=== PATIENT | female | born 1950 | race Caucasian/White ===

== ENCOUNTER → 2019-12-03 16:40 | Outpatient (CLI) | payer MEDICARE, SELFPAY ==
--- NOTE | ~2019-12-03 | XR_ITS ---
EXAMINATION: XR thoracic spine 3V EXAM DATE: 12/03/2019 16:59 INDICATION: Back pain. TECHNIQUE: Frontal and lateral projections of the thoracic spine as well as lateral swimmers projecti on of the upper thoracic spine for interpretation. There is no prior study for comparison. FINDINGS: There is mild mid thoracic disc disease, minimal anterior wedging of 3 consecutive mid tho racic levels, contributing to mild thoracic kyphosis. Only small endplate osteophytes. The vertebral bodies are aligned in the AP dimension. Paraspinal soft tissue is unremarkable. IMPRESSION: Mild mid thoracic disc disease and kyphosis. Reviewed, dictated and finalized at location A. ING AND VENTILATION ENGINEER
== END ==
PROVIDERS: PCP Family Medicine; Visit Provider Family Medicine
DX: M51.24 Other intervertebral disc displacement, thoracic region (principal)
CPT/HCPCS: 72072

== ENCOUNTER 2020-01-03 14:52 | Outpatient (CLI) | payer MEDICARE, SELFPAY ==
--- NOTE | ~2020-01-03 | US_ITS ---
US soft tissue head and neck 01/03/2020 15:36 Indication: Palpable right neck and supraclavicular masses Procedure: High-resolution ultrasound of the right neck and supraclavicular region Comparison: No prior studies for comparison. Findings: In the right supraclavicular location there is a complex hypoechoic mass measuring 1.4 x 1. 1 x 1 cm, consistent with a lymph node. Inferior to the thyroid gland at the sternal notch there is a n oval hypoechoic mass measuring 10 x 8 x 4 mm without internal vascularity or posterior features. Th is likely represents a lymph node with effacement of the fatty hilum. Lateral to the thyroid gland an d the right neck there is a complex hypoechoic mass with internal vascularity measuring 1.8 x 1.6 x 0 .8 cm. Impression: 1: Multiple neck masses involving the right neck lateral to the thyroid gland, right supraclavicular region and the sternal notch, likely pathologic lymph nodes. Consider metastatic disease. Correlate f or history of malignancy. Recommend correlation with percutaneous biopsy. Reviewed, dictated and finalized at location A. PROCESS MILLER HEAD Impression: 1: Multiple neck masses involving the right neck lateral to the thyroid gland, right supraclavicular region and the sternal notch, likely pathologic lymph nod es. Consider metastatic disease. Correlate for history of malignancy. Recommend correlation with percutaneous biopsy.
== END 2020-01-03 14:53 | disposition home or self-care (01) ==
LOC: ANHIMG 15:01
PROVIDERS: PCP Family Medicine; Visit Provider Obstetrics & Gynecology Gynecology
DX: R22.1 Localized swelling, mass and lump, neck (principal)
CPT/HCPCS: 76536

== ENCOUNTER 2020-01-11 15:25 | Outpatient (CLI) | payer MEDICARE, SELFPAY ==
--- NOTE | 2020-01-11 15:31 | ECG_ITS ---
Measurements Intervals [place] Rate: 99 P: 56 [place]: 157 QRS: 32 QRSD: 94 T: 34 QT: 344 QTc: 442 Interpretive Statements SINUS RHYTHM NORMAL ECG Electronically Signed On 01-11-2020 15:57:16 SEWING MACHINE MECHANIC by Darron Hernandez D.O.
== END 2020-01-11 15:26 | disposition home or self-care (01) ==
LOC: ANHSURGERY 15:31
PROVIDERS: PCP Family Medicine; Visit Provider Surgery
DX: I10 Essential (primary) hypertension (principal)
CPT/HCPCS: 93005

== ENCOUNTER 2020-01-17 00:39 | Day surgery (SDC) | payer MEDICARE, SELFPAY ==
[2020-01-11 15:11] VITALS: BMI 24.2
--- NOTE | 2020-01-16 13:55 | WPDANESEPPF ---
Anes - Initial Pre Proc Eval Procedure: Operation Date: 01/17/20 07:30 Proposed Procedures p Excisional Biopsy Right Supraclavicular Lymph Node - Everton Chanel DO Date/Time: 01/16/20 13:55 Surgeon: Everton Chanel DO Pre Op Diagnosis: supraclavicular lymphadenopathy Patient Data Age: 69 Gender: F Height: 1.57 m Weight: 60 kg Allergies Allergy/AdvReac Type Severity Reaction Status Date / Time erythromycin base Allergy Mild Rash Verified 01/17/20 06:41 Sulfa (Sulfonamide Allergy Mild Rash Verified 01/17/20 06:41 Antibiotics) azithromycin Allergy Unknown Rash Verified 01/17/20 06:41 Home Medications Medication Instructions Recorded Confirmed Type cyanocobalamin (vitamin B-12) 1,000 mcg PO DAILY 10/01/19 01/11/20 History 1,000 mcg tablet losartan 50 mg tablet 25 mg PO DAILY tablet 10/01/19 01/11/20 History atorvastatin 10 mg tablet 10 mg PO DAILY #90 tablet 01/09/20 01/11/20 Rx omeprazole 20 mg PO PRN PRN 01/11/20 01/11/20 History Patient hx anesthesia problems: none Family hx anesthesia problems: none PMFSH Social History Social History Smoking status: Never smoker Second hand tobacco smoke exposure: No Alcohol intake: current Substance use: never Gender identity (if verbalized by the patient): Female Anes - Eval Final PreProcedure Day of Procedure 01/16/20 13:55 Patient weight: overweight Heart: regular rate and rhythm Lungs: clear to auscultation and normal air movement Airway: Mallampati scale class II Neurological: alert and oriented Last oral intake: >/= 8 hours ASA classification: II Emergent: no Anesthetic plan: proceed Anesthesia type and monitoring: general GIVS and LMA Informed Consent: The patient's anesthetic plan and its attendant risks and benefits were discussed with the patient/family/POA. Questions were solicited and answers provided to the satisfaction of the patient/family/POA.
[2020-01-17] MEDS: LACTATED RINGERS 1,000 ML 30 ML IV CONT (06:50)
[2020-01-17 06:58] VITALS: BP 147/91; PULSE 99; RESP 18; TEMP 37.1; O2SAT 96
--- NOTE | 2020-01-17 07:02 | WPDHPUPDATE1 ---
History and Physical Update Update Date/Time: 01/17/20 07:02 History and Physical has been reviewed, including an updated exam of the patient. There are NO changes in the patient's condition. Risks, benefits, and alternatives have been discussed and questions answered. Patient agrees to proceed with procedure.
[2020-01-17] MEDS: ceFAZolin 2 GM/D5W 50 ML 2 GM/50 ML BAG IVPB (07:21)
[2020-01-17] MEDS: LIDO 1%/EPINEPHRINE 1:100,000 20 ML VIAL INFILTRATE (07:59)
--- NOTE | 2020-01-17 08:02 | P.OP_ITS ---
Procedure Note - Detailed Date of procedure: 01/17/20 Pre-op diagnosis: supraclavicular lymphadenopathy Post-op diagnosis: same Procedure performed: Excisional biopsy of right supraclavicular lymph node Description of procedure: * Procedure as well as risks, benefits, and alternatives were discussed with the patient. Written consent was obtained and placed in chart prior to procedure. Patient was brought back to surgical suite. She was placed supine on operating table. Time-out was done to confirm patient and procedure. IV sedation was then administered by the Anesthesia Department. Her right neck and upper chest area was prepped and draped in sterile fashion using chlorhexidine prep. 1% lidocaine with epinephrine was infiltrated directly over the palpable enlarged right supraclavicular lymph node. A 2 cm incision was made using a 15 blade scalpel directly over this lymph node. Electrocautery was used for hemostasis and for careful dissection through the subcutaneous tissue and platysma. The lymph node was identified and was carefully isolated from the surrounding attachments using electrocautery. The lymphatic channel and blood supply was ligated using electrocautery. The mass was carefully freed up and removed completely and sent to the lab for pathology. The wound bed was then inspected. Hemostasis appeared adequate. No other abnormalities were noted. The deep tissue was then reapproximated using 3 0 Vicryl simple interrupted sutures, and the skin was approximated using 4 0 Monocryl running subcuticular suture. Exofin glue was applied on top. Patient was awakened from anesthesia, and transferred to recovery. Anesthesia: MAC and local (1% lidocaine with epinephrine) Surgeon: Everton Chanel DO Estimated blood loss (mL): 5 Pathology: yes Complications: No immediate complications Condition: stable Disposition: same day Findings: This is a 69 y/o female who presented with a neck mass that has persisted over the past several weeks. U/S was done at on 01/03/20 which showed multiple neck masses involving the right neck lateral to the thyroid gland, right supraclavicular region and the sternal notch, likely pathologic lymph nodes. She denies intentional weight loss, recent scratch, and night sweats. She denies overlying skin changes. She has a firm, easily palpable, enlarged lymph node in the right supraclavicular region. Discussions were made with the patient about treatment options, and decision was made to proceed with excisional biopsy of right supraclavicular lymph node. Right supraclavicular lymph node excision was performed. The patient had a lymph node that was identified that appeared somewhat enlarged and was firm and slightly rubbery in texture. The lymph node was carefully freed up from the surrounding supraclavicular region, and removed completely. This was sent to the lab for pathology. There did appear to be other slightly enlarged lymph nodes deeper within the supraclavicular region, but no attempt was made to remove any of these.
[2020-01-17 08:13] VITALS: BP 97/64; PULSE 80; RESP 12; O2SAT 96
[2020-01-17 08:40] VITALS: BP 137/86; PULSE 80; RESP 16; O2SAT 97
== END 2020-01-17 08:56 | disposition home or self-care (01) ==
PROVIDERS: PCP Family Medicine; Visit Provider Surgery
PROC: (CPT 38500; principal; 2020-01-17 07:30)
DX: C77.0 Secondary and unspecified malignant neoplasm of lymph nodes of head, face and neck (principal); I10 Essential (primary) hypertension; E78.2 Mixed hyperlipidemia; M85.80 Other specified disorders of bone density and structure, unspecified site; K21.9 Gastro-esophageal reflux disease without esophagitis; E55.9 Vitamin D deficiency, unspecified; D51.3 Other dietary vitamin B12 deficiency anemia
CPT/HCPCS: 38500; 88108; 88184; 88185; 88305; 88333; 88342; J0690; J2250; J2370; J2704; J3010; J7120

== ENCOUNTER → 2020-01-28 12:18 | Outpatient (CLI) | payer MEDICARE, SELFPAY ==
--- NOTE | ~2020-01-28 | CT_ITS ---
EXAMINATION: CT chest w con DATE: 01/28/2020 12:54 INDICATION: Secondary an unspecified malignant neoplasm of lymph nodes TECHNIQUE: Transaxial computed tomographic images of the chest were obtained after the administration of 75 cc of Omnipaque 350 intravenous contrast. The dose-length product (DLP) was 166.24 mGy-cm. Ite rative reconstruction was used. COMPARISON: None FINDINGS: There are multiple pathologically enlarged thoracic lymph nodes. Left axillary/subpectoral lymph nodes measure up to 1.3 cm in short axis. Right axillary/subpectoral lymph nodes measure up to 2.4 cm in short axis. There are pathologically enlarged prevascular, paratracheal, right hilar, and s ubcarinal lymph nodes. There is a 4.3 x 3.3 cm right supraclavicular fluid collection containing gas. Gastrohepatic ligament lymphadenopathy measures up to 1.2 cm in short axis. There is elevation of th e left hemidiaphragm. There is no pleural effusion or pneumothorax. The heart size is normal. The meaghan gs are free of focal airspace opacities. There is moderate thoracic spondylosis. IMPRESSION: 1. Thoracic and upper abdominal lymphadenopathy as detailed above. Findings could reflect lymphoma ve rsus metastatic disease. Biopsy is recommended if not previously performed. 2. Right supraclavicular gas containing fluid collection. Findings could reflect postbiopsy seroma in the correct clinical setting. Abscess is a consideration however there is not significant associated edematous stranding of the adjacent fat. Recommend clinical correlation. Reviewed, dictated and finalized at location A. IMPRESSION: 1. Thoracic and upper abdominal lymphadenopathy as detailed above. Findings cou ld reflect lymphoma versus metastatic disease. Biopsy is recommended if not pre viously performed. 2. Right supraclavicular gas containing fluid collection. Findings could reflec t postbiopsy seroma in the correct clinical setting. Abscess is a consideration however there is not significant associated edematous stranding of the adjacen t fat. Recommend clinical correlation.
[2020-01-28 12:41] LABS: Estimated Glomerular Filt Rate > 60
== END ==
PROVIDERS: PCP Family Medicine; Visit Provider Surgery
DX: C77.9 Secondary and unspecified malignant neoplasm of lymph node, unspecified (principal); C80.1 Malignant (primary) neoplasm, unspecified; R59.0 Localized enlarged lymph nodes
CPT/HCPCS: 36415; 71260; Q9967

== ENCOUNTER 2020-10-20 07:35 | Outpatient (CLI) | payer MEDICARE, SELFPAY ==
--- NOTE | 2020-10-20 | ECG_ITS ---
Measurements Intervals [place] Rate: 97 P: 53 [place]: 178 QRS: 35 QRSD: 93 T: 54 QT: 340 QTc: 432 Interpretive Statements SINUS RHYTHM NORMAL ECG Electronically Signed On 10-20-2020 9:02:21 WOMENS HEALTH NURSE PRACTITIONER by Darron Hernandez D.O.
[2020-10-20 08:24] LABS: Basophils Absolute Auto 0.1 K/mm3 (0.0-0.1); Basophils Percent Auto 0.6 % (0.2-1.2); Eosinophils Absolute Auto 0.1 K/mm3 (0-0.3); Eosinophils Percent Auto 0.6 % (0-4.4); Hematocrit 43.6 % (37.0-47.0); Hemoglobin 13.7 g/dL (12.0-15.0); Immature Granulocyte Absolute 0.02 K/mm3 (0.00-0.031); Immature Granulocyte Percent A 0.2 % (0-0.5); Lymphocytes Absolute Auto 1.62 K/mm3 (0.9-3.2); Lymphocytes Percent Auto 18.8 % (18.3-44.2); Mean Corpuscular HGB Conc 31.4 g/dl (32-36); Mean Corpuscular Hemoglobin 30.9 pg (26-34); Mean Corpuscular Volume 98.2 fl (80-100); Mean Platelet Volume 11.1 fl (7.4-10.4); Monocytes Absolute Auto 0.6 K/mm3 (0.1-0.6); Neutrophils Absolute Auto 6.3 K/mm3 (1.3-6.7); Neutrophils Percent Auto 72.8 % (45.5-73.1); Platelet Count Result 203 k/mm3 (150-375); Red Blood Count 4.44 M/mm3 (4.2-5.4); White Blood Count 8.6 K/mm3 (4.5-10.0)
[2020-10-20 08:38] LABS: Alanine Aminotransferase 23 U/L (4-35); Albumin Level 4.4 g/dL (3.5-5.1); Alkaline Phosphatase 73 U/L (38-126); Anion Gap 7 mmol/L (8-16); Aspartate Amino Transferase 24 U/L (14-36); Bilirubin,Total 0.8 mg/dL (0.2-1.3); Blood Urea Nitrogen 10 mg/dL (7-17); Calcium 9.9 mg/dL (8.4-10.2); Carbon Dioxide 30 mmol/L (22-30); Chloride 101 mmol/L (98-107); Estimated Glomerular Filt Rate > 60; Glucose 143 mg/dL (65-105); Magnesium 2.2 mg/dL (1.6-2.3); Phosphorus 3.2 mg/dL (2.5-4.5); Sodium 138 mmol/L (137-145)
[2020-10-20 08:41] LABS: INR 0.9; Prothrombin Time 12.8 Seconds (11.1-14.7)
[2020-10-20 08:42] LABS: Partial Thromboplastin Time 33.1 SECONDS (22.3-36.8)
[2020-10-20 08:47] LABS: Fibrinogen 354 mg/dl (215-510)
[2020-10-20 09:08] LABS: Thyroid Stimulating Hormone 0.969 uIU/mL (0.465-4.680)
[2020-10-20 09:19] LABS: Free T4 Free Thyroxine 1.33 ng/mL (0.78-2.19)
[2020-10-20 15:39] LABS: Creatine Kinase 60 U/L (30-135)
[2020-10-20 16:12] LABS: Potassium Urine Random 36.8 meq/L; Sodium Urine Random 90 meq/L
[2020-10-20 16:15] LABS: Add Urine Microscopic? YES; Appearance Urine Clear (Clear); Bilirubin Urine Negative (Negative); Blood Urine Negative (Negative); Color Urine Yellow (Yellow); Glucose Urine UA Negative (Negative); Ketones Urine Negative (Negative); Leukocyte Esterase Ur Trace LEU/UL (NEGATIVE); Mucus Urine Rare /lpf; Nitrate Urine Negative (Negative); Protein Urine Negative (Negative); RBC Urine 0-2 /hpf (0-2); Specific Grav Ur 1.013 (1.001-1.035); Squamous Epithelial Cell Urine Few /hpf (Few); Urobilinogen Urine Negative mg/dL (<2.0)
[2020-10-23 14:33] LABS: Triiodothyronine T3 Free 2.6 pg/mL (2.3-4.2)
== END 2020-10-20 07:36 | disposition home or self-care (01) ==
PROVIDERS: PCP Family Medicine
DX: C34.81 Malignant neoplasm of overlapping sites of right bronchus and lung (principal)
CPT/HCPCS: 36415; 80053; 81001; 82550; 83735; 84100; 84133; 84300; 84439; 84443; 84481; 85025; 85380; 85384; 85610; 85730; 93005

== ENCOUNTER 2021-01-12 07:41 | Outpatient (CLI) | payer MEDICARE, SELFPAY ==
--- NOTE | 2021-01-12 | ECG_ITS ---
Measurements Intervals [place] Rate: 84 P: 57 [place]: 184 QRS: 32 QRSD: 92 T: 47 QT: 368 QTc: 436 Interpretive Statements SINUS RHYTHM BASELINE WANDER- AVL NORMAL ECG Electronically Signed On 01-12-2021 8:55:36 ION EXCHANGE OPERATOR by Darron Hernandez D.O.
[2021-01-12 08:45] LABS: Basophils Absolute Auto 0.1 K/mm3 (0.0-0.1); Eosinophils Absolute Auto 0.2 K/mm3 (0-0.3); Eosinophils Percent Auto 3.3 % (0-4.4); Hematocrit 42.4 % (37.0-47.0); Immature Granulocyte Absolute 0.01 K/mm3 (0.00-0.031); Immature Granulocyte Percent A 0.2 % (0-0.5); Lymphocytes Absolute Auto 1.73 K/mm3 (0.9-3.2); Lymphocytes Percent Auto 33.6 % (18.3-44.2); Mean Corpuscular HGB Conc 30.7 g/dl (32-36); Mean Corpuscular Hemoglobin 29.1 pg (26-34); Mean Corpuscular Volume 95.1 fl (80-100); Mean Platelet Volume 11.2 fl (7.4-10.4); Monocytes Absolute Auto 0.5 K/mm3 (0.1-0.6); Monocytes Percent Auto 8.7 % (2.6-8.5); Neutrophils Absolute Auto 2.7 K/mm3 (1.3-6.7); Neutrophils Percent Auto 53.2 % (45.5-73.1); Platelet Count Result 198 k/mm3 (150-375); Red Blood Count 4.46 M/mm3 (4.2-5.4); Red Cell Distribution Width 13.6 % (11.5-14.5); White Blood Count 5.2 K/mm3 (4.5-10.0)
[2021-01-12 08:45] LABS: Add Urine Microscopic? YES; Appearance Urine Cloudy (Clear); Bacteria Urine Trace /hpf; Bilirubin Urine Negative (Negative); Blood Urine Negative (Negative); Color Urine Straw (Yellow); Glucose Urine UA Negative (Negative); Ketones Urine Negative (Negative); Leukocyte Esterase Ur Trace LEU/UL (Negative); Nitrate Urine Negative (Negative); Protein Urine Negative (Negative); Squamous Epithelial Cell Urine Few /hpf (Few); Urobilinogen Urine Negative mg/dL (<2.0)
[2021-01-12 08:46] LABS: INR 0.9; Partial Thromboplastin Time 32.1 SECONDS (22.3-36.8); Prothrombin Time 12.5 Seconds (11.1-14.7)
[2021-01-12 08:50] LABS: Alanine Aminotransferase 21 U/L (4-35); Albumin Level 4.2 g/dL (3.5-5.1); Alkaline Phosphatase 75 U/L (38-126); Anion Gap 6 mmol/L (8-16); Aspartate Amino Transferase 25 U/L (14-36); Bilirubin,Total 0.6 mg/dL (0.2-1.3); Blood Urea Nitrogen 11 mg/dL (7-17); Calcium 9.7 mg/dL (8.4-10.2); Carbon Dioxide 29 mmol/L (22-30); Chloride 104 mmol/L (98-107); Creatine Kinase 74 U/L (30-135); D Dimer 0.49 ug/mL (<0.48); Estimated Glomerular Filt Rate > 60; Glucose 115 mg/dL (65-105); Magnesium 1.9 mg/dL (1.6-2.3); Phosphorus 3.2 mg/dL (2.5-4.5); Potassium 3.6 mmol/L (3.4-5.0); Sodium 139 mmol/L (137-145)
[2021-01-12 08:52] LABS: Fibrinogen 298 mg/dl (215-510)
--- NOTE | 2021-01-12 08:53 | ECG_ITS ---
Measurements Intervals [place] Rate: 84 P: 56 [place]: 184 QRS: 31 QRSD: 90 T: 47 QT: 358 QTc: 424 Interpretive Statements SINUS RHYTHM NORMAL ECG Electronically Signed On 01-12-2021 9:22:43 CARCASS WASHER by Darron Hernandez D.O.
--- NOTE | 2021-01-12 08:55 | ECG_ITS ---
Measurements Intervals [place] Rate: 86 P: 61 [place]: 178 QRS: 34 QRSD: 93 T: 50 QT: 361 QTc: 432 Interpretive Statements SINUS RHYTHM NORMAL ECG Electronically Signed On 01-12-2021 9:22:52 HOTEL ATTENDANT by Darron Hernandez D.O.
[2021-01-12 09:05] LABS: Specific Grav Ur 1.004 (1.001-1.035)
[2021-01-12 09:20] LABS: Potassium Urine Random 8.3 meq/L; Sodium Urine Random 16 meq/L
[2021-01-12 09:24] LABS: Free T4 Free Thyroxine 1.52 ng/mL (0.78-2.19)
[2021-01-15 04:55] LABS: Triiodothyronine T3 Free 2.7 pg/mL (2.3-4.2)
== END 2021-01-12 07:42 | disposition home or self-care (01) ==
PROVIDERS: PCP Family Medicine
DX: C34.81 Malignant neoplasm of overlapping sites of right bronchus and lung (principal)
CPT/HCPCS: 36415; 80053; 81001; 82248; 82550; 83735; 84100; 84133; 84300; 84439; 84443; 84481; 85025; 85380; 85384; 85610; 85730; 87086; 87088; 93005

== ENCOUNTER 2021-02-23 07:40 | Outpatient (CLI) | payer MEDICARE, SELFPAY ==
[2021-02-23 08:40] LABS: Basophils Absolute Auto 0.1 K/mm3 (0.0-0.1); Basophils Percent Auto 1.1 % (0.2-1.2); Eosinophils Absolute Auto 0.1 K/mm3 (0-0.3); Eosinophils Percent Auto 1.7 % (0-4.4); Hematocrit 42.1 % (37.0-47.0); Hemoglobin 13.3 g/dL (12.0-15.0); Immature Granulocyte Absolute 0.01 K/mm3 (0.00-0.031); Immature Granulocyte Percent A 0.2 % (0-0.5); Lymphocytes Percent Auto 34.5 % (18.3-44.2); Mean Corpuscular HGB Conc 31.6 g/dl (32-36); Mean Corpuscular Hemoglobin 30.1 pg (26-34); Mean Corpuscular Volume 95.2 fl (80-100); Mean Platelet Volume 11.3 fl (7.4-10.4); Monocytes Absolute Auto 0.4 K/mm3 (0.1-0.6); Monocytes Percent Auto 8.2 % (2.6-8.5); Neutrophils Absolute Auto 2.8 K/mm3 (1.3-6.7); Neutrophils Percent Auto 54.3 % (45.5-73.1); Platelet Count Result 206 k/mm3 (150-375); Red Blood Count 4.42 M/mm3 (4.2-5.4); White Blood Count 5.2 K/mm3 (4.5-10.0)
[2021-02-23 08:44] LABS: Potassium Urine Random 18.4 meq/L; Sodium Urine Random 23 meq/L
--- NOTE | 2021-02-23 08:45 | ECG_ITS ---
Measurements Intervals [place] Rate: 81 P: 60 [place]: 175 QRS: 28 QRSD: 93 T: 54 QT: 370 QTc: 431 Interpretive Statements SINUS RHYTHM NORMAL ECG Electronically Signed On 02-23-2021 9:12:47 CDT by Darron Hernandez D.O.
[2021-02-23 08:53] LABS: Alanine Aminotransferase 16 U/L (4-35); Albumin Level 4.6 g/dL (3.5-5.1); Alkaline Phosphatase 70 U/L (38-126); Anion Gap 7 mmol/L (8-16); Aspartate Amino Transferase 25 U/L (14-36); Bilirubin,Total 0.6 mg/dL (0.2-1.3); Blood Urea Nitrogen 11 mg/dL (7-17); Calcium 9.5 mg/dL (8.4-10.2); Carbon Dioxide 29 mmol/L (22-30); Chloride 104 mmol/L (98-107); Creatine Kinase 85 U/L (30-135); Estimated Glomerular Filt Rate > 60; Glucose 116 mg/dL (65-105); Phosphorus 3.3 mg/dL (2.5-4.5); Sodium 140 mmol/L (137-145)
--- NOTE | 2021-02-23 08:56 | ECG_ITS ---
Measurements Intervals [place] Rate: 77 P: 60 [place]: 180 QRS: 27 QRSD: 93 T: 50 QT: 376 QTc: 428 Interpretive Statements SINUS RHYTHM NORMAL ECG Electronically Signed On 02-23-2021 9:12:54 CDT by Darron Hernandez D.O.
--- NOTE | 2021-02-23 08:57 | ECG_ITS ---
Measurements Intervals [place] Rate: 80 P: 57 [place]: 172 QRS: 29 QRSD: 92 T: 53 QT: 368 QTc: 425 Interpretive Statements SINUS RHYTHM NORMAL ECG Electronically Signed On 02-23-2021 9:12:39 CDT by Darron Hernandez D.O.
[2021-02-23 09:02] LABS: INR 0.9; Partial Thromboplastin Time 33.4 SECONDS (22.3-36.8); Prothrombin Time 12.8 Seconds (11.1-14.7)
[2021-02-23 09:07] LABS: D Dimer 0.46 ug/mL (<0.48)
[2021-02-23 09:19] LABS: Fibrinogen 259 mg/dl (215-510)
[2021-02-23 09:33] LABS: Free T4 Free Thyroxine 1.39 ng/mL (0.78-2.19)
[2021-02-23 17:05] LABS: Add Urine Microscopic? NO; Appearance Urine Clear (Clear); Bilirubin Urine Negative (Negative); Blood Urine Negative (Negative); Color Urine Straw (Yellow); Glucose Urine UA Negative (Negative); Ketones Urine Negative (Negative); Leukocyte Esterase Ur Negative LEU/UL (NEGATIVE); Nitrate Urine Negative (Negative); Protein Urine Negative (Negative); Specific Grav Ur 1.006 (1.001-1.035); Urobilinogen Urine Negative mg/dL (<2.0)
[2021-02-26 06:23] LABS: Triiodothyronine T3 Free 3.2 pg/mL (2.3-4.2)
== END 2021-02-23 07:41 | disposition home or self-care (01) ==
PROVIDERS: PCP Family Medicine
DX: C34.81 Malignant neoplasm of overlapping sites of right bronchus and lung (principal)
CPT/HCPCS: 36415; 80053; 81003; 82248; 82550; 83735; 84100; 84133; 84300; 84439; 84443; 84481; 85025; 85380; 85384; 85610; 85730; 93005

== ENCOUNTER 2021-09-07 21:25 | Emergency (ER) | payer MEDICARE, SELFPAY ==
[2021-09-07 21:29] VITALS: BP 156/101; PULSE 96; RESP 15; TEMP 37.7; O2SAT 98
[2021-09-07 22:27] VITALS: BP 156/101; PULSE 96; RESP 18; TEMP 37.7; O2SAT 98
--- NOTE | 2021-09-07 22:59 | ED.GENADULT ---
HPI - General Adult General Chief complaint: Animal Bite Stated complaint: dog bite Time Seen by Provider: 09/07/21 22:23 History of Present Illness HPI narrative: Patient [id number] female presents emerged part with chief complaint of laceration to left hand. Patient reports that her dog caught her hand with a tooth and she had about a 3 cm laceration to the thenar aspect of the left hand. Patient reports that it did go down into the fat the patient Steri-Stripped it at home. Patient states she washed the area out well and applied the dressing. Patient reports he is unsure of her last tetanus status. The patient reports is not allergic to penicillin Related Data Home Medications Medication Instructions Recorded Confirmed cyanocobalamin (vitamin B-12) 1,000 mcg PO DAILY 10/01/19 06/22/21 1,000 mcg tablet pembrolizumab [Keytruda] 200 mg IV ONCE 09/07/21 Allergies Allergy/AdvReac Type Severity Reaction Status Date / Time erythromycin base Allergy Mild Rash Verified 09/07/21 22:29 Sulfa (Sulfonamide Allergy Mild Rash Verified 09/07/21 22:29 Antibiotics) azithromycin Allergy Unknown Rash Verified 09/07/21 22:29 Review of Systems Review of Systems: A 10 system review of systems was completed on the patient and is negative except for what is stated in the HPI. Nursing and ancillary documentation was reviewed. [facility] Past Medical History Medical History Abnormal fasting glucose Acute thoracic back pain Breast cancer screening by mammogram Carpal tunnel syndrome of right wrist Chronic anxiety GERD without esophagitis Hypothyroidism, unspecified Mixed hyperlipidemia Non-small cell lung cancer (NSCLC) (~01/2020) Osteopenia after menopause Primary hypertension Vitamin B12 deficiency anemia Vitamin D deficiency Surgical History Surgical History H/O breast biopsy x3 History of x2 81,85 Hx of tonsillectomy Family History Family History Grandparent Diabetes mellitus Family history of pancreatic cancer Father Family history of hypercholesterolemia Mother Hypertension Patient's mother is in good health Cancer Other Family history of congestive heart failure Social History Social History Smoking status: Never smoker Second hand tobacco smoke exposure: No Alcohol intake: current Substance use: never Gender identity (if verbalized by the patient): Female Exam Narrative: GENERAL: Well-appearing, well-nourished, and in no acute distress. HEAD: Normocephalic, atraumatic. EYES: PERRLA and EOMI. ENT: Nares clear, no rhinorrhea or epistaxis. Mucous membranes moist. NECK: Supple. CHEST: Clear to auscultation. No respiratory distress. HEART: Regular rate and rhythm. No murmur heard. Normal peripheral pulses. ABDOMEN: Soft, nontender, nondistended, normal active bowel sounds. EXTREMITIES: Normal range of motion. No edema. 3 cm laceration that is Steri-Stripped by the patient prior to arrival. There is no signs of tendon injury SKIN: Warm, dry, no rash. NEURO: No focal deficits. Alert and oriented x3. PSYCH: Normal mood and affect. Course Vital Signs Vital signs: Vital Signs Temperature 37.7 C H 09/07/21 21:29 Pulse Rate 96 09/07/21 21:29 Respiratory Rate 15 09/07/21 21:29 Blood Pressure 156/101 H 09/07/21 21:29 Pulse Oximetry 98 09/07/21 21: Temperature 37.7 C H 09/07/21 22:27 Pulse Rate 96 09/07/21 22:27 Respiratory Rate 18 09/07/21 22:27 Blood Pressure 156/101 H 09/07/21 22:27 Pulse Oximetry 98 09/07/21 22:27 Medical Decision Making Vital Signs Vital Signs: Vital Signs Temperature 37.7 C H 09/07/21 21:29 Pulse Rate 96 09/07/21 21: Respiratory Rate 1
[2021-09-07] MEDS: TETANUS,DIPHTHERIA,AC PERTUSSIS ADULT (0.5 ML) BOOSTRIX IM (23:24)
[2021-09-07] MEDS: AMOXICILLIN/CLAVULANATE K 875-125 MG TAB 1 TABLET PO (23:24)
[2021-09-07 23:29] VITALS: BP 138/102; PULSE 96; RESP 16; O2SAT 99
== END 2021-09-07 23:31 | disposition home or self-care (01) ==
PROVIDERS: Emergency Provider Emergency Medicine; PCP Family Medicine
DX: S61.452A Open bite of left hand, initial encounter (principal); Z23 Encounter for immunization; W54.0XXA Bitten by dog, initial encounter
CPT/HCPCS: 90471; 90715; 99283; A9270